=== PATIENT | female | born 1985 | race Caucasian/White ===

== ENCOUNTER 2019-10-09 14:04 | Outpatient (CLI) | payer OTHER, SELFPAY ==
[2019-10-09 16:38] LABS: Beta HCG Quantitative < 2.39 mIU/ML
== END 2019-10-09 14:05 | disposition home or self-care (01) ==
PROVIDERS: PCP Student in an Organized Health Care Education/Training Program; Visit Provider Student in an Organized Health Care Education/Training Program
DX: Z30.431 Encounter for routine checking of intrauterine contraceptive device (principal)
CPT/HCPCS: 36415; 84702